=== PATIENT | female | born 1975 | race Asian ===

== ENCOUNTER 2017-08-29 11:23 | Day surgery (SDC) | payer OTHER ==
[2017-08-24 16:18] VITALS: BMI 38.9
--- NOTE | 2017-08-29 11:59 | HP ---
History & Physical Update - History History: No Change - Physical Physical: No Change - Assessment Assessment: No Change - Plan Plan: No Change (Agree with H&P from 08/23/17 - for marsupialization of left bartholin gland cyst)
[2017-08-29] MEDS ORDERED: LACTATED RINGERS SOLUTION 1,000 ML IV SCH (12:00)
[2017-08-29] MEDS ORDERED: IBUPROFEN 800 MG/8 ML IJ IVPB PRN (12:00)
[2017-08-29] MEDS ORDERED: MIDAZOLAM HCL 2 MG/2 ML SINGLE DOSE VIAL ONE (12:31)
[2017-08-29] MEDS ORDERED: DEXAMETHASONE SOD PHOSPHATE 4 MG/1 ML VIAL ONE (13:06)
[2017-08-29] MEDS ORDERED: LIDOCAINE HCL 2% 100 MG/5 ML DISP.SYRIN ONE (13:06)
[2017-08-29] MEDS ORDERED: LIDOCAINE 1%/EPI 1:100000 (20 ML MULTI DOSE VIAL) ONE (13:11)
[2017-08-29] MEDS ORDERED: ceFAZolin SODIUM 1 GM VIAL IVPB ONE (13:30)
[2017-08-29] MEDS ORDERED: LIDOCAINE 1%/EPI 1:100000 (20 ML MULTI DOSE VIAL) IJ ONE (13:42)
--- NOTE | 2017-08-29 13:49 | OP ---
Operative Note - Note: Operative Date: 08/29/17 Pre-Operative Diagnosis: left bartholin gland cyst Operation: left bartholin cyst marsupialization Findings: left bartholin gland abscess Post-Operative Diagnosis: Same as Pre-op Surgeon: Jazmine Zaldivar Anesthesia: General (with LMA) Operative Report Dictated: Yes
[2017-08-29] MEDS ORDERED: ACETAMINOPHEN 1000 MG/100 ML VIAL (NON FORMULARY) IVPB ONE (14:09)
[2017-08-29] MEDS ORDERED: DOXYCYCLINE INJECTION 100 MG in DEXTROSE 5%-WATER - 100 ML IVPB ONE (14:45)
[2017-08-29] MEDS ORDERED: DOXYCYCLINE HYCLATE 100 MG VIAL ONE (14:49)
[2017-08-29 15:51] VITALS: BP 132/77; PULSE 67; TEMP 98.6
--- NOTE | 2017-08-30 15:50 | OP ---
DATE OF OPERATION: 08/29/2017 PREOPERATIVE DIAGNOSIS: Left Bartholin gland cyst. POSTOPERATIVE DIAGNOSIS: Left Bartholin gland abscess. PROCEDURE: Left Bartholin cyst marsupialization. SURGEON: Jazmine Zaldivar MD ANESTHESIA: General with laryngeal mask anesthesia. ESTIMATED BLOOD LOSS: 10 mL. COMPLICATIONS: None. DISPOSITION: Stable to PACU. COUNTS: Sponge, needle, and instrument count reported to be correct. BRIEF HISTORY AND PROCEDURE: Patient is a 42-year-old female who was complaining of a persistent left Bartholin gland cyst. It had been drained several times in the past and biopsied by prior physicians and was noted to be benign. The patient desired surgical management at this point. The patient was consented after options and elected to undergo a Bartholin cyst marsupialization. The patient was admitted to [facility] on August 29, 2017. Consents for the procedure were signed. The patient was taken back to the operating room, given general anesthesia with LMA, and placed in the dorsal lithotomy position. She was prepped and draped in the usual sterile fashion and a hard timeout was performed. The Bartholin cyst was palpated in the area of was noted and an incision was created on the skin with a scalpel over the area of the Bartholin gland cyst. The skin was grasped with an Allis clamp and the cyst wall was also tagged with sutures at this time. The cyst was ruptured and purulent fluid was noted to be draining. The Bartholin cyst was irrigated copiously with normal saline solution and the cyst wall was sutured to the skin using several interrupted sutures to complete the marsupialization procedure. Estimated blood loss 10 mL. Complications: None. No specimens to pathology. Sponge, needle, and instrument count correct. The patient tolerated the procedure well, went to recovery in stable condition in the postoperative area at the time of this dictation. JAZMINE ZALDIVAR DO /[id number]
== END 2017-08-29 16:10 | disposition home or self-care (01) ==
LOC: JASU-SURG 11:23
PROVIDERS: ATTEND Obstetrics & Gynecology
PROC: 0U9LX0Z Drainage of Vestibular Gland with Drainage Device, External Approach (ICD-10-PCS; 2017-08-29)
PROC: 0U9LXZZ Drainage of Vestibular Gland, External Approach (ICD-10-PCS; principal; 2017-08-29 13:00)
DX: N75.0 Cyst of Bartholin's gland (principal)
CPT/HCPCS: 36415; 84703; 86850; 86900; 86901; J0131

== ENCOUNTER 2021-02-27 12:07 | Emergency (ER) | payer OTHER ==
[2021-02-27 12:30] VITALS: BP 128/86; PULSE 78; TEMP 98.2; BMI 31.8
[2021-02-27] MEDS ORDERED: METHOCARBAMOL 500 MG TABLET PO ONE (12:49)
[2021-02-27] MEDS ORDERED: KETOROLAC TROMETHAMINE 30 MG/1 ML VIAL IM ONE (12:49)
[2021-02-27] MEDS ORDERED: METHOCARBAMOL 500 MG TABLET ONE (13:03)
[2021-02-27] MEDS ORDERED: KETOROLAC TROMETHAMINE 30 MG/1 ML VIAL ONE (13:03)
== END 2021-02-27 13:43 | disposition home or self-care (01) ==
LOC: JERFT 12:07
PROC: 3E023GC Introduction of Other Therapeutic Substance into Muscle, Percutaneous Approach (ICD-10-PCS; principal; 2021-02-27)
DX: S30.0XXA Contusion of lower back and pelvis, initial encounter (principal); W10.8XXA Fall (on) (from) other stairs and steps, initial encounter
CPT/HCPCS: 72220-TC-FY; 99284-25

== ENCOUNTER 2021-04-11 07:10 | Day surgery (SDC) | payer OTHER ==
[2021-04-11 07:21] VITALS: BMI 36.6
[2021-04-11 09:02] LABS: BASO % 0.3 % (0-2.0); EOS % 1.9 % (0-4.5); HEMATOCRIT 41.2 % (32.4-45.2); HEMOGLOBIN 13.8 GM/dL (10.7-15.3); MCH 28.8 pg (25.7-33.7); MCHC 33.5 g/dl (32.0-36.0); MEAN CELL VOLUME 85.8 fl (80-96); MONO % 5.3 % (3.8-10.2); NEUT % 81.5 % (42.8-82.8); PLATELET COUNT 220 10^3/uL (134-434); RDW 14.2 % (11.6-15.6)
[2021-04-11 09:19] LABS: INR 0.91 (0.83-1.09); PROTHROMBIN TIME (PATIENT) 10.5 SEC (9.7-13.0)
[2021-04-11 09:27] LABS: CALCIUM 9.2 mg/dL (8.5-10.1)
[2021-04-11 09:28] LABS: BLOOD UREA NITROGEN 11.2 mg/dL (7-18)
[2021-04-11 09:31] LABS: CREATININE 0.6 mg/dL (0.55-1.3)
[2021-04-11 09:33] LABS: BILIRUBIN,TOTAL 0.4 mg/dL (0.2-1); TOT PROT 7.1 g/dl (6.4-8.2)
[2021-04-11] MEDS ORDERED: PROMETHAZINE HCL 25 MG/1 ML VIAL IVPUSH PRN (10:26)
[2021-04-11] MEDS ORDERED: ONDANSETRON 4 MG/2 ML VIAL IVPUSH PRN (10:26)
[2021-04-11] MEDS ORDERED: oxyCODONE HCL 5 MG TABLET PO PRN (10:26)
[2021-04-11] MEDS ORDERED: LACTATED RINGERS SOLUTION 1,000 ML IV SCH (10:30)
[2021-04-11] MEDS ORDERED: MIDAZOLAM HCL 2 MG/2 ML SINGLE DOSE VIAL ONE (10:37)
[2021-04-11] MEDS ORDERED: PROPOFOL 20 ML ONE (10:37)
[2021-04-11] MEDS ORDERED: ceFAZolin 2 GRAM PREMIX BAG IVPB ONE (11:25)
[2021-04-11] MEDS ORDERED: ALBUTEROL SO4 0.083% IH SOL 2.5 MG/3 ML VIAL.NEB. NEB ONE (12:38)
[2021-04-11] MEDS ORDERED: ALBUTEROL SO4 HFA INHALER IH ONE (12:45)
[2021-04-11] MEDS ORDERED: BENZOCAINE 20% 57 GM BOTTLE TP PRN (13:21)
[2021-04-11 15:18] VITALS: BP 150/83; PULSE 82; TEMP 97.8
== END 2021-04-11 15:18 | disposition home or self-care (01) ==
LOC: JER 07:10 → JASUSAT 08:52
PROVIDERS: ATTEND Obstetrics & Gynecology
PROC: 0UBL0ZZ Excision of Vestibular Gland, Open Approach (ICD-10-PCS; 2021-04-11)
PROC: 0UBM0ZZ Excision of Vulva, Open Approach (ICD-10-PCS; principal; 2021-04-11 09:30)
DX: N75.1 Abscess of Bartholin's gland (principal); N80.8 Other endometriosis
CPT/HCPCS: 36415; 80053; 84703; 85025; 85610; 86850; 86900; 86901; 87070; 87186; 87205; 88304-TC; 93005; 93010; 94760; 99285-25; C9803; U0003; U0005